=== PATIENT | male | born 1950 | race Hispanic/Latino ===

== ENCOUNTER 2020-10-09 13:58 | Emergency (ER) | payer OTHER ==
[~2020-10-09] VITALS: Ht 180.3 cm; Wt 99.5 kg
[2020-10-09 16:37] LABS: BASO % 0.5 % (0.0-1.0); EOS # 0.2 10^3/uL (0.0-0.5); HEMATOCRIT 30.6 % (42.0-52.0); HEMOGLOBIN 10.2 g/dl (13.5-17.5); LYMPH # 2.1 10^3/uL (1.5-5.0); LYMPH % 33.6 % (24.0-44.0); MEAN CORPUSCULAR HEMOGLOBIN 31.5 pg (27.0-33.0); MEAN CORPUSCULAR HGB CONC 33.3 g/dl (32.0-36.5); MEAN CORPUSCULAR VOLUME 94.4 fl (80.0-96.0); MONO # 0.5 10^3/uL (0.0-0.8); MONO % 7.8 % (2.0-8.0); NEUTROPHILS # 3.5 10^3/uL (1.5-8.5); NEUTROPHILS % 54.5 % (36.0-66.0); PLATELET COUNT, AUTOMATED 168 10^3/uL (150-450); RED BLOOD COUNT 3.24 10^6/uL (4.30-6.10); WHITE BLOOD COUNT 6.4 10^3/uL (4.0-10.0)
--- NOTE | 2020-10-09 16:44 | REP ---
INDICATION: CHEST PAIN. COMPARISON: None. TECHNIQUE: One view FINDINGS: Lungs clear. Heart not enlarged. No failure. IMPRESSION: No active process. <Electronically signed by Issac Gutierrez > 10/09/20 [id number]
[2020-10-09 17:02] LABS: BLOOD UREA NITROGEN 24 MG/DL (7-18); CALCIUM LEVEL 8.9 MG/DL (8.8-10.2); CARBON DIOXIDE LEVEL 23 MEQ/L (21-32); CHLORIDE LEVEL 113 MEQ/L (98-107); CK-MB VALUE MASS 1.5 NG/ML (<3.6); CPK CREATINE PHOSPHOKINASE 199 U/L (39-308); CREATININE FOR GFR 1.19 MG/DL (0.70-1.30); GLOMERULAR FILTRATION RATE > 60.0 (>42); GLUCOSE, FASTING 98 MG/DL (70-100); MB/CK RELATIVE INDEX 0.75 (< OR =4); POTASSIUM SERUM 4.3 MEQ/L (3.5-5.1); SODIUM LEVEL 144 MEQ/L (136-145); TROPONIN I < 0.02 NG/ML (< 0.10)
[2020-10-09] MEDS ORDERED: ISOVUE-370 76% 100ML VIAL As Ordered ONE (18:55)
[2020-10-09] MEDS ORDERED: LIPI20TA PO (18:56)
[2020-10-09] MEDS ORDERED: CARD1TAB5 PO (18:56)
[2020-10-09] MEDS ORDERED: ATEN25TA PO (18:56)
[2020-10-09] MEDS ORDERED: METF-877 PO (18:56)
[2020-10-09] MEDS ORDERED: LOSA50TA88 PO (18:56)
[2020-10-09 19:10] LABS: ALBUMIN 3.5 GM/DL (3.2-5.2); ALT/SGPT 22 U/L (12-78); BILIRUBIN,DIRECT 0.1 MG/DL (0.0-0.2); BILIRUBIN,TOTAL 0.3 MG/DL (0.2-1.0); LIPASE 190 U/L (73-393); TOTAL PROTEIN 6.4 GM/DL (6.4-8.2)
[2020-10-09] MEDS ORDERED: GI COCKTAIL 50ML BTL(HYOSCYAMINE/MAALOX/LIDOCAINE VISCOUS)(1:3:1) PO ONE (19:15)
--- NOTE | 2020-10-09 19:37 | REP ---
INDICATION: chest pain. COMPARISON: None. TECHNIQUE: Chest CTA FINDINGS: There is no evidence of pulmonary embolus. The ascending in descending thoracic aorta are unremarkable. The great vessels show normal origins from the arch. The lungs are clear. There is no pleural fluid. There is no hilar or mediastinal adenopathy PA and the coronary arteries are calcified the adrenal glands are not enlarged. IMPRESSION: Negative CTA chest. <Electronically signed by Issac Gutierrez > 10/09/201932
--- NOTE | 2020-10-09 19:51 | REP ---
INDICATION: chest pain. COMPARISON: None. TECHNIQUE: Scans were obtained during contrast administration. FINDINGS: The gallbladder is fluid filled without evidence of gallstone. The liver shows normal size and attenuation. The zones of mass or biliary tract dilatation. The pancreas, spleen, aorta and adrenal glands unremarkable. Small cysts are noted in both kidneys. There is no hydronephrosis or mass on either kidney. Ureters are not dilated. Diverticuli involve the sigmoid colon there is no evidence of diverticulitis. There is no evidence of adenopathy, mass or inflammatory change in the abdomen or pelvis. IMPRESSION: Diverticulosis. No evidence of diverticulitis. Bilateral renal cysts. <Electronically signed by Issac Gutierrez > 10/09/201946
[2020-10-09 21:05] LABS: CK-MB VALUE MASS 1.6 NG/ML (<3.6); CPK CREATINE PHOSPHOKINASE 180 U/L (39-308); MB/CK RELATIVE INDEX 0.89 (< OR =4); TROPONIN I < 0.02 NG/ML (< 0.10)
[2020-10-09] MEDS ORDERED: MAALOX 30 ML SUSP *UDC PO ONE (22:35)
[2020-10-09 22:52] VITALS: BP 152/76
--- NOTE | 2020-10-10 08:55 | ECGEPIP ---
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
--- NOTE | 2020-10-10 09:01 | ECGEPIP ---
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
== END 2020-10-09 22:54 | disposition home or self-care (01) ==
LOC: M ED 13:58
DX: R07.89 Other chest pain (principal); R05 Cough; K57.30 Diverticulosis of large intestine without perforation or abscess without bleeding; N28.1 Cyst of kidney, acquired; R11.0 Nausea; E11.9 Type 2 diabetes mellitus without complications; I10 Essential (primary) hypertension; E78.5 Hyperlipidemia, unspecified; Z79.84 Long term (current) use of oral hypoglycemic drugs; Z79.899 Other long term (current) drug therapy; Z91.013 Allergy to seafood
CPT/HCPCS: 36415; 71045; 71275; 74177; 80048; 80076; 82550; 82553; 83690; 84484; 85025; 93005; 93041; 94760; 99285; Q9967